=== PATIENT | female | born 2000 ===

== ENCOUNTER 2024-12-06 15:29 | Outpatient (REF) | payer OTHER, SELFPAY ==
--- OUTSIDE RECORDS SUMMARY | 2024-12-06 09:30 | XMS_ITS | Encounter Summary ---
Author Organization [employer] Address [address] [facility] [address] [place] [address] Care Team Providers Care Lead C Developer Name Role Phone Heladio Ohara MARII Primary Care Provider [phone] Reason for Visit * Reason Comments Establish Care Encounter Details Date Type Department Care Team ([facility] Contact Info) Description 12/06/2024 9:30 AM EDT Office Visit [facility] [address] [place] [address] Iva Hauser MD [address] [place] [address] Stress disorder, acute (Primary Dx); Encounter for immunization; Unprotected sex Social History Tobacco Use Types Packs/Day Years Used Date Smoking Tobacco: Never Smokeless Tobacco: Never Tobacco Cessation:Counseling Given: Not Answered Comments Unknown Sex and Gender Information Value Date Recorded Sex Assigned at Female 12/05/2024 9:54 AM EDT Legal Sex Female 9:02 AM EDT Gender Identity Female 12/05/2024 9:54 AM EDT Sexual Orientation Straight 12/06/2024 4: 32 PM EDT documented as of this encounter Last Filed Vital Signs Vital Sign Reading Time Taken Comments Blood Pressure 123/73 12/06/2024 9:26 AM EDT Pulse 87 12/06/2024 9:26 AM EDT Temperature 36.1 C (97 F) 12/06/2024 9:26 AM EDT Respiratory Rate 18 12/06/2024 9:26 AM EDT Oxygen Saturation 99% 12/06/2024 9:26 AM EDT Inhaled Oxygen Concentration - - Weight 70.3 kg (155 lb) 12/06/2024 9:26 AM EDT Height 167.6 cm (5' 6 ) 12/06/2024 9:26 AM EDT Body Mass Index 25.02 12/06/2024 9:26 AM EDT documented in this encounter Progress Notes * Iva Hauser MD - 12/06/2024 9:30 AM EDT Subjective Patient ID: Brittani Hoover is a 24 y.o. female who presents for Establish Care. Anxiety Presents for follow-up visit. Patient reports no chest pain, decreased concentration, depressed mood, dry mouth, feeling of choking, impotence, insomnia, muscle tension, nausea, obsessions, palpitations or shortness of breath. Symptoms occur occasionally. The severity of symptoms is mild. Review of Systems Constitutional: Negative. Respiratory: Negative. Negative for shortness of breath. Cardiovascular: Negative for chest pain and palpitations. Gastrointestinal: Negative. Negative for nausea. Genitourinary: Negative. Negative for impotence. Musculoskeletal: Negative for neck pain. Neurological: Negative for headaches. Psychiatric/Behavioral: Negative for decreased concentration. The patient does not have insomnia. Objective Physical Exam Constitutional: Appearance: Normal appearance. Cardiovascular: Rate and Rhythm: Normal rate and regular rhythm. Pulses: Normal pulses. Heart sounds: Normal heart sounds. Pulmonary: Effort: Pulmonary effort is normal. Abdominal: General: Abdomen is flat. Neurological: Mental Status: She is alert. Assessment/Plan Diagnoses and all orders for this visit: Stress disorder, acute Comments: No medications for now Referred to [facility] for further managment Encounter for immunization - TDAP VACCINE 7 yrs + Unprotected sex Comments: Pt wanted swab sent documented in this encounter Plan of Treatment Scheduled Orders Name Type Priority Associated Diagnoses Orde r Schedule Bacterial Vaginosis Panel Microbiology Routine Unprotected sex Ordered: 12/06/2024 documented as of this encounter Visit Diagnoses Diagnosis Stress disorder, acute- Primary Unspecified acute reaction to stress Encounter for immunization Unprotected sex Problems related to high-risk sexual behavior documented in this encounter Care Teams Lead C Developer Relationship Specialty Start Date End Date Heladio Ohara CNP [address] [place] [address] PCP - General Family Medicine 12/06/24 documented as of this encounter
--- OUTSIDE RECORDS SUMMARY | 2024-12-06 19:51 | XMS_ITS | Encounter Summary ---
Author Organization [employer] Address [address] [facility] [address] [place] [address] Care Team Providers Care Integrated Circuit Layout Designer Name Role Phone Unavailable Primary Care Provider Unavailabl e Reason for Visit * Reason Onset Date Comments chart prep 12/05/2024 Encounter Details Date Type Department Care Team ([facility] st Contact Info) Description 12/05/2024 Telephone [facility] [address] [place] [address] Iva Hauser MD [address] [place] [address] chart prep Social History Tobacco Use Types Packs/Day Years Used Date Smoking Tobacco: Never Assessed Comments Unknown Sex and Gender Information Value Date Recorded Sex Assigned at Female 12/05/2024 9:54 AM EDT Legal Sex Female 9:02 AM EDT Gender Identity Female 12/05/2024 9:54 AM EDT Sexual Orientation Straight 12/06/2024 4: 32 PM EDT documented as of this encounter Miscellaneous Notes * Telephone Encounter - Lesli Figueroa MA - 12/05/2024 1:43 PM EDT Chart Prep Labs: not applicable Images: not applicable Referrals: not applicable Vaccines due: due Screenings: STI screening, LMP, and PISQ, PAP Overdue care gaps: SBIRT, SDOH, PHQ-9, MARK ANTHONY-7, Disability screen, and Tobacco documented in this encounter Plan of Treatment Not on file documented as of this encounter Visit Diagnoses Not on filedocumented in this encounter
--- OUTSIDE RECORDS SUMMARY | 2024-12-06 19:51 | XMS_ITS | Clinical Summary ---
Author Organization [employer] Address [address] [place] [address] [address] [place] [address] Care Team Providers Care Nurse Companion Name Role Phone Heladio Ohara MARII Primary Care Provider [phone] Allergies No known active allergies Medications No known medications Active Problems No known active problems Encounters Date Type Department Care Team Description 12/06/2024 9:30 AM EDT Office Visit [facility] [address] [place] [address] Iva Hauser MD Stress disorder, acute (Primary Dx); Encounter for immunization; Unprotected sex 12/06/2024 Travel 12/05/2024 Telephone [facility] [address] [place] [address] Iva Hauser MD chart prep 11/29/2024 Patient Outreach [facility] [address] [place] [phone] Cyrus Broussard MD Pre-visit Planning (Pre visit planning LVM ) 09/12/2024 Telephone [facility] [address] [place] [phone] Cyrus Broussard MD from Last 3 Months Immunizations Immunization Administration Dates Next Due Tdap 12/06/2024 Family History Medical History Relation Name Comments ADD / ADHD Brother Parkinsonism Maternal Grandmother Relation Name Status Comments Brother Alive Father Alive Maternal Grandmother Alive Mother Alive Sister Alive Social History Tobacco Use Types Packs/Day Years Used Date Smoking Tobacco: Never Smokeless Tobacco: Never Tobacco Cessation:Counseling Given: Not Answered Comments Unknown Sex and Gender Information Value Date Recorded Sex Assigned at Female 12/05/2024 9:54 AM EDT Legal Sex Female 9:02 AM EDT Gender Identity Female 12/05/2024 9:54 AM EDT Sexual Orientation Straight 12/06/2024 4: 32 PM EDT Last Filed Vital Signs Vital Sign Reading [...] Mass Index 25.02 12/06/2024 9:26 AM EDT Plan of Treatment Health Maintenance Due Date Last Done Comments Chlamydia and Gonorrhea Screening 2001 Depression Screening 2001 HIV Screening 2001 SDOH Screening 2001 Disability Screening 2001 Alcohol/Substance Use Screening 2013 Family Planning (PISQ) 2016 HPV Vaccines (1 - 3-dose series) 2016 Meningococcal B Vaccine (1 o f 2 - Standard) 2017 Hepatitis C Screening 11/12/2019 Hepatitis B Vaccines (1 of 3 - 19+ 3-dose series) 2020 Pap Smear 2022 Influenza Vaccine (#1) 2025 Postp oned from 10/09/2024 (Patient Refused) COVID-19 Vaccine (1 - 2023-2 5 season) 2025 Postponed from 10/09 (Patient Refused) Tobacco Screening 12/06/2025 12/06/2024 DTaP/Tdap/Td Vaccines (2 - T d or Tdap) 12/06/2034 12/06/2024 Zoster Vaccines (1 of 2) 11/12/2051 RSV Patients and Pa tients Aged 60 years or older (1 - 1-dose 75+ series) 2076 HIB Vaccines Aged Out No longer eligi ble based on patient's age to complete this topic Hepatitis A Vaccines Aged Out No long er eligible based on patient's age to complete this topic IPV Vaccines Aged Out No longer eligi ble based on patient's age to complete this topic Meningococcal Vaccine Aged Out No sofia grace eligible based on patient's age to complete this topic Pneumococcal Vaccine: Pediat rics (0 to 5 Years) and At-Risk Patients (6 to 49) Years Aged Out No longer eligi ble based on patient's age to complete this topic RSV under 20 months Aged Out No longe r eligible based on patient's age to complete this topic Rotavirus Vaccines Aged Out No longer eligible based on patient's age to complete this topic [facility] Care Teams Nurse Companion Relationship Specialty Start Date End Date Heladio Ohara CNP [address] [place] [id number] PCP - General Family Medicine 12/06/24
--- OUTSIDE RECORDS SUMMARY | 2024-12-06 19:51 | XMS_ITS | Encounter Summary ---
Author Organization [employer] Address [address] [facility] [address] [place] [address] Care Team Providers Care Stage Producer Name Role Phone Heladio Ohara CNP Primary Care Provider [phone] Encounter Details Date Type Department Care Team (Latest Contact Info) Description 12/06/2024 Travel Social History Tobacco Use Types Packs/Day Years Used Date Smoking Tobacco: Never Smokeless Tobacco: Never Comments Unknown Sex and Gender Information Value Date Recorded Sex Assigned at Female 12/05/2024 9:54 AM EDT Legal Sex Female 9:02 AM EDT Gender Identity Female 12/05/2024 9:54 AM EDT Sexual Orientation Straight 12/06/2024 4: 32 PM EDT documented as of this encounter Plan of Treatment Not on file documented as of this encounter Visit Diagnoses Not on filedocumented in this encounter Care Teams Stage Producer Relationship Specialty Start Date End Date Heladio Ohara CNP [address] [place] [address] PCP - General Family Medicine 12/06/24 documented as of this encounter
[2024-12-06 23:22] LABS: Bacterial Vaginosis PCR POSITIVE (Negative); Candida Group PCR DETECTED (Not Detect); Candida glab krusei PCR NOT DETECTED (Not Detect); Trichomonas vaginalis PCR NOT DETECTED (Not Detect)
== END 2024-12-06 15:30 | disposition home or self-care (01) ==
LOC: HO.CHCLNP 15:29
PROVIDERS: Visit Provider Student in an Organized Health Care Education/Training Program
DX: Z72.51 High risk heterosexual behavior (principal)
CPT/HCPCS: 81515